=== PATIENT | male | born 1965 | race African-American/Black ===

== ENCOUNTER 2020-10-21 12:01 | Emergency (ER) | payer OTHER, SELFPAY ==
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
[2020-10-21 12:02] VITALS: BP 106/72; PULSE 72; RESP 20; TEMP 36.7; O2SAT 98
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
[2020-10-21] MEDS: diazePAM INJ (*CRX) 10 MG/2 ML SYRINGE 5 MG IM (12:42)
[2020-10-21] MEDS: KETOROLAC (*BKC) 60 MG/2 ML VIAL IM (12:43)
[2020-10-21 13:13] VITALS: TEMP 36.7
== END 2020-10-21 13:38 | disposition home or self-care (01) ==
PROVIDERS: Emergency Provider Emergency Medicine
DX: S13.4XXA Sprain of ligaments of cervical spine, initial encounter (principal); M47.812 Spondylosis without myelopathy or radiculopathy, cervical region; V49.50XA Passenger injured in collision with unspecified motor vehicles in traffic accident, initial encounter
CPT/HCPCS: 72125; 96372; 99284; J1885; J3360